=== PATIENT | male | born 1965 | race Caucasian/White ===

== ENCOUNTER 2017-08-26 14:19 | Emergency (ER) | payer BC ==
[2017-08-26 14:51] VITALS: BP 146/90
--- NOTE | 2017-08-26 15:19 | UC ---
Throat Pain/Nasal Darren HPI - HPI Summary HPI Summary: Patient has increased sinus congestion and MATHEW for the past few days. chills the past 2 nights - History of Current Complaint Chief Complaint: UCRespiratory Stated Complaint: SINUS Time Seen by Provider: 08/26/17 15:07 Hx Obtained From: Patient Onset/Duration: Sudden Onset, Lasting Days Severity: Moderate - Allergies/Home Medications Allergies/Adverse Reactions: Allergies Allergy/AdvReac Type Severity Reaction Status Date / Time Fenofibrate [From Tricor] Allergy Unknown Verified 08/26/17 14:51 Reaction Details Naproxen [From Aleve] AdvReac Nausea And Verified 08/26/17 14:51 Vomiting Home Medications: Home Medications Albuterol HFA INHALER* [Ventolin HFA Inhaler*] 1 puff INH Q4H PRN 08/26/17 [ History Confirmed 08/26/17] Lisinopril/HCTZ 10/12.5(NF) [Zestoretic 10/12.5(NF)] 1 tab PO DAILY 08/26/17 [ History Confirmed 08/26/17] Metoprolol Tartrate TAB* [Lopressor TAB*] 50 mg PO BID 08/26/17 [History Confirmed 08/26/17] SitaGLIPtin (NF) [Januvia (NF)] 25 mg PO DAILY 08/26/17 [History Confirmed 08/26] glipiZIDE TAB* [Glucotrol TAB*] 5 mg PO DAILY 08/26/17 [History Confirmed ] metFORMIN* [Glucophage 1000 MG TAB *] 1,000 mg PO BID 08/26/17 [History Confirmed 08/26/17] PMH/Surg Hx/FS Hx/Imm Hx Previously Healthy: Yes - Surgical History Surgical History: Yes Surgery Procedure, Year, and Place: hernia repair 2001 - Family History Known Family History: Positive: Hypertension - Social History Alcohol Use: Occasionally Substance Use Type: None Smoking Status (MU): Never Smoked Tobacco - Immunization History Most Recent Influenza Vaccination: no Review of Systems Constitutional: Chills, Fatigue Skin: Negative ENT: Sore Throat, Ear Ache, Nasal Discharge, Sinus Congestion, Sinus Pain/ Tenderness Respiratory: Cough Cardiovascular: Negative Gastrointestinal: Negative Genitourinary: Negative Motor: Negative Neurovascular: Negative Musculoskeletal: Negative Neurological: Negative Psychological: Negative Is Patient Immunocompromised?: No All Other Systems Reviewed And Are Negative: Yes Physical Exam Triage Information Reviewed: Yes Appearance: Well-Nourished, Ill-Appearing, Pain Distress Vital Signs: Initial Vital Signs Temp 98.9 F 08/26/17 14:46 Pulse 101 08/26/17 14:46 Resp 18 08/26/17 14:46 BP 146/90 08/26/17 14:46 Pulse Ox 98 08/26/17 14:46 Vital Signs Reviewed: Yes Eye Exam: Normal ENT: Positive: Pharyngeal erythema, Nasal congestion, Nasal drainage, TM dull Neck exam: Normal Neck: Positive: Supple, Nontender Respiratory Exam: Normal Respiratory: Positive: Chest non-tender, Lungs clear, Normal breath sounds Cardiovascular Exam: Normal Cardiovascular: Positive: No Murmur, Pulses Normal, Tachycardia Abdominal Exam: Normal Abdomen Description: Positive: Nontender, No Organomegaly, Soft Bowel Sounds: Positive: Present Musculoskeletal Exam: Normal Neurological Exam: Normal Psychological Exam: Normal Skin Exam: Normal Throat Pain/Nasal Course/Dx - Course Course Of Treatment: hx obtained, exam performed ,meds reviewed, treated for sinusitis - Differential Dx/Diagnosis Differential Diagnosis/HQI/PQRI: Influenza, Laryngitis, Pharyngitis, Sinusitis, URI Provider Diagnoses: sinusitis Discharge - Discharge Plan Condition: Stable Disposition: HOME Prescriptions: Amoxicillin PO (*) [Amoxicillin 875 MG (*)] 875 mg PO BID #14 tab predniSONE TAB* [Deltasone TAB*] 40 mg PO DAILY #14 tab Patient Education Materials: Sinusitis (ED) Additional Instructions: 1. take the medication as prescribed. 2. Increase fluid intake and get plenty of rest. 3. Follow up as needed.
== END 2017-08-26 15:24 | disposition home or self-care (01) ==
LOC: UCCORT 14:19
DX: J32.9 Chronic sinusitis, unspecified (principal); Z88.6 Allergy status to analgesic agent; Z88.8 Allergy status to other drugs, medicaments and biological substances
CPT/HCPCS: 99212; G0463

== ENCOUNTER 2019-03-23 20:36 | Emergency (ER) | payer BC ==
[2019-03-23 21:25] VITALS: BP 126/85
[2019-03-23] MEDS ORDERED: Cephalexin CAP* 500 MG PO ONE ×2 (22:29)
[2019-03-23] MEDS ORDERED: DOXYcycline CAP(*) 100 MG PO ONE ×2 (22:31)
--- NOTE | 2019-03-23 22:34 | UC ---
Lower Extremity/Ankle HPI - HPI Summary HPI Summary: 54 yo diabetic with pain/swelling/redness left foot x 3 days no f.c no injury painful wt bearing - History of Current Complaint Chief Complaint: SHERLYkin Stated Complaint: OPEN SORE LEFT FOOT (DIABETIC) Time Seen by Provider: 03/23/19 21:26 Hx Obtained From: Patient Onset/Duration: Gradual Onset Severity Initially: Mild Severity Currently: Mild Pain Intensity: 3 Aggravating Factor(s): Standing, Ambulation Alleviating Factor(s): Rest Able to Bear Weight: Yes - Allergies/Home Medications Allergies/Adverse Reactions: Allergies Allergy/AdvReac Type Severity Reaction Status Date / Time fenofibrate [From Tricor] Allergy Swelling Verified 03/23/19 21:19 Of Face,Lips,& Throat guaifenesin [From Mucinex] Allergy Difficulty Verified 03/23/19 21:19 Breathing naproxen [From Aleve] Allergy Nausea And Verified 03/23/19 21:19 Vomiting Home Medications: Home Medications Insulin GLARGINE(*) [Lantus(*)] 75 units DAILY 03/23/19 [History Confirmed 03/23] PMH/Surg Hx/FS Hx/Imm Hx Previously Healthy: Yes Endocrine History: Diabetes Cardiovascular History: Hypertension - Surgical History Surgical History: Yes Surgery Procedure, Year, and Place: hernia repair 2001 - Family History Known Family History: Positive: Hypertension - Social History Alcohol Use: Occasionally Substance Use Type: None Smoking Status (MU): Never Smoked Tobacco - Immunization History Most Recent Influenza Vaccination: no Most Recent Tetanus Shot: utd; within 4-5 years Review of Systems All Other Systems Reviewed And Are Negative: Yes Constitutional: Positive: Negative Skin: Positive: Negative Eyes: Positive: Negative ENT: Positive: Negative Respiratory: Positive: Negative Cardiovascular: Positive: Negative Gastrointestinal: Positive: Negative Genitourinary: Positive: Negative Motor: Positive: Negative Neurovascular: Positive: Negative Musculoskeletal: Positive: Arthralgia, Myalgia Neurological: Positive: Negative Psychological: Positive: Negative Physical Exam Triage Information Reviewed: Yes Appearance: Well-Appearing, No Pain Distress, Well-Nourished Vital Signs: Initial Vital Signs Temp 97.1 F 03/23/19 21:20 Pulse 90 03/23/19 21:20 Resp 16 03/23/19 21:20 BP 126/85 03/23/19 21:20 Pulse Ox 100 03/23/19 21:20 Vital Signs Reviewed: Yes Eyes: Positive: Conjunctiva Clear ENT: Positive: Hearing grossly normal. Negative: Nasal congestion, Nasal drainage, Trismus, Muffled voice, Dental tenderness Neck: Positive: Supple, Nontender, No Lymphadenopathy Respiratory: Positive: Lungs clear, Normal breath sounds, No respiratory distress Cardiovascular: Positive: RRR, No Murmur Musculoskeletal Exam: Other - antalgic gait Musculoskeletal: Positive: Other: - see image Images Feet (Multiple View): 1 - red/swollen/skin intact/no ulcer/no fb noted Lower Extremity Course/Dx - Differential Dx/Diagnosis Provider Diagnosis: Diabetic infection of left foot Discharge - Sign-Out/Discharge Documenting (check all that apply): Patient Departure All imaging exams completed and their final reports reviewed: No - Discharge Plan Condition: Stable Disposition: HOME Prescriptions: Cephalexin CAP* [Keflex CAP*] 500 mg PO QID #28 cap DOXYcycline CAP(*) [DOXYcycline 100MG CAP(*)] 100 mg PO BID #14 cap Patient Education Materials: Cellulitis (ED) Forms: *Work Release Referrals: Shilpa Bosch MD [Primary Care Provider] - 2 Days Additional Instructions: warm soapy soaks elevation rest official xr reading pending to ER for new or worsening sympotms blood work pending - Billing Disposition and Condition Condition: STABLE Disposition: Home
--- NOTE | 2019-03-24 09:33 | UC ---
- Progress Note Progress Note: left foot xray report: IMPRESSION: No foreign body. No evidence of osteomyelitis is noted. Soft tissue swelling is noted on the plantar aspect of the foot. Course/Dx - Diagnoses Provider Diagnoses: Diabetic infection of left foot Discharge - Sign-Out/Discharge Documenting (check all that apply): Patient Departure All imaging exams completed and their final reports reviewed: Yes - Discharge Plan Condition: Stable Disposition: HOME Prescriptions: Cephalexin CAP* [Keflex CAP*] 500 mg PO QID #28 cap DOXYcycline CAP(*) [DOXYcycline 100MG CAP(*)] 100 mg PO BID #14 cap Patient Education Materials: Cellulitis (ED) Forms: *Work Release Referrals: Shilpa Bosch MD [Primary Care Provider] - 2 Days Additional Instructions: warm soapy soaks elevation rest official xr reading pending to ER for new or worsening sympotms blood work pending - Billing Disposition and Condition Condition: STABLE Disposition: Home
[2019-03-24 13:06] LABS: Erythrocyte Sed Rate 12 mm/Hr (0-19)
[2019-03-24 13:09] LABS: ABS Basophils 0.1 10^3/ul (0-0.2); ABS Eosinophils 0.4 10^3/ul (0-0.6); ABS Lymphocytes 3.1 10^3/ul (1.0-4.8); ABS Monocytes 0.8 10^3/ul (0-0.8); ABS Neutrophils 4.9 10^3/ul (1.5-7.7); ABS Nucleated RBC 0 10^3/ul; Hematocrit 43 % (36-46); Lymphocyte % 33.9 %; Mean Corpuscular HGB Conc 35 g/dL (31-36); Mean Corpuscular Hemoglobin 31 pg (27-31); Mean Corpuscular Volume 88 fL (80-94); Mean Platelet Volume 9.9 fL (7.4-10.4); Nucleated Red Blood Cells % 0.1; Platelet Count 205 10^3/uL (150-450); Red Blood Count 4.91 10^6 /uL (4.18-5.48); Red Cell Distribution Width 13 % (10.5-15); White Blood Count 9.3 10^3/uL (3.5-10.8)
--- NOTE | 2019-03-25 07:13 | UC ---
- Progress Note Progress Note: CBC with dif, sed rate, CRP - wnl no change [place] 03/25/19 Course/Dx - Diagnoses Provider Diagnoses: Diabetic infection of left foot Discharge - Sign-Out/Discharge Documenting (check all that apply): Post-Discharge Follow Up All imaging exams completed and their final reports reviewed: Yes - Discharge Plan Condition: Stable Disposition: HOME Prescriptions: Cephalexin CAP* [Keflex CAP*] 500 mg PO QID #28 cap DOXYcycline CAP(*) [DOXYcycline 100MG CAP(*)] 100 mg PO BID #14 cap Patient Education Materials: Cellulitis (ED) Forms: *Work Release Referrals: Shilpa Bosch MD [Primary Care Provider] - 2 Days Additional Instructions: warm soapy soaks elevation rest official xr reading pending to ER for new or worsening sympotms blood work pending - Billing Disposition and Condition Condition: STABLE Disposition: Home
== END 2019-03-23 23:00 | disposition home or self-care (01) ==
LOC: UCCORT 20:36
DX: E11.69 Type 2 diabetes mellitus with other specified complication (principal); L98.9 Disorder of the skin and subcutaneous tissue, unspecified; I10 Essential (primary) hypertension; Z79.4 Long term (current) use of insulin; Z88.8 Allergy status to other drugs, medicaments and biological substances
CPT/HCPCS: 36415; 85025; 85652; 86140; 99213; A9270-GY; G0463